=== PATIENT | female | born 1940 | race Caucasian/White ===

== ENCOUNTER 2016-08-14 17:27 | Emergency (ER) | payer MEDICARE, MEDICAID ==
--- NOTE | 2016-08-14 17:57 | ED Physician Chart ---
Chief Complaint/HPI - Patient Information Date Seen:: 08/14/16 Time Seen:: 17:30 Chief Complaint:: right knee pain History of Present Illness:: Onset x one day of Right Knee Pain and Neck Pain after an unwitnessed fall; ? syncopal event; pt denies C/P, dyspnea, Abd. Pain, A/N/V/D/C, fever, chills, H/ As,; Allergies:: Allergies Allergy/AdvReac Type Severity Reaction Status Date / Time No Known Allergies Allergy Verified 08/14/16 17:36 Vitals:: Vital Signs - 8 hr 08/14/16 17:37 Temp 99.2 F HR 71 RR 17 BP 126/72 O2 Sat % 96 Historian:: Patient, Family Member Review:: Nurse's Note Reviewed Review of Systems - Review of Systems General/Constitutional: Fever, Chills, No weight loss, No weakness, No diaphoresis, No edema, No loss of appetite Skin: No skin lesions, No rash, Bruising Head: Headache, Light headed Eyes: No loss of vision, No pain, No diplopia ENT: No earache, No nasal drainage, No sore throat, No tinnitus Neck: Neck pain, No swelling, No thyromegaly, No stiffness, No mass noted Cardio Vascular: No chest pain, Palpitations, No PND, No orthopnea, No edema Pulmonary: No SOB, Cough, No sputum, No wheezing GI: Nausea, Vomiting, Diarrhea, Pain, No melena, No hematochezia, Constipation, No hematemesis G/U: No dysuria, No frequency, No hematuria Musculoskeletal: Bone or joint pain, No back pain, Muscle pain Endocrine: No polyuria, No polydipsia Psychiatric: No prior psych history, No depression, No anxiety, No suicidal ideation Hematopoietic: Bruising, No lymphadenopathy Allergic/Immuno: No urticaria, No angioedema Neurological: Syncope, No focal symptoms, Weakness, No paresthesia, Headache, No seizure, Dizziness, No confusion, No vertigo Past Medical History - Past Medical History Past Medical History: HTN, Asthma/COPD Family History: HTN Social History: Non Smoker, No Alcohol, No Drug Use Surgical History: None Psychiatricy History: None Medication: Reviewed Family Medical History - Family Member Mother History Unknown: Yes Physical Exam - Physical Examination General/Constitutional: Awake, Well-developed, well-nourished, Alert, No distress, GCS 15, Non-toxic appearing, Ambulatory Head: Atraumatic Eyes: Lids, conjuctiva normal, PERRL, EOMI Skin: Nl inspection, No rash, No skin lesions, No ecchymosis, Well hydrated, No lymphadenopathy ENMT: External ears, nose nl, Nasal exam nl, Lips, teeth, gums nl Neck: No JVD, No nuchal rigidity, No bruit, No mass, No stridor Other Neck comments:: Bilateral cervical paravertebral soft tissue tenderness; good motor, tendon, and sensory functions; good NV functions Respiratory: Nl effort/Exclusion, Clear to Auscultation, No Wheeze/Rhonchi/Rales Cardio Vascular: RRR, No murmur, gallop, rubs, NL S1 S2 GI: No tenderness/rebounding/guarding, No organomegaly, No hernia, Normal BS's, Nondistended, No mass/bruits, No McBurney tenderness : No CVA tenderness Extremities: normal strength in all extremities, No edema, Normal digits & nails Other Extremities comments:: Right Knee: + Contusions; Diffuse Tenderness and swelling; good NV functions Neuro/Psych: Alert/oriented, DTR's symmetric, Normal sensory exam, Normal motor strength, Judgement/insight normal, Mood normal, Normal gait, No focal deficits Misc: normal gait, Normal back, No paraspinal tenderness Labs/Radiology/EKG Results - Lab Results Results: pt refused all labs, EKG, and Scans - Radiology Results Results: Right Knee X-Rays: No Fx; pt refused all other X-rays ED Septic Shock - . Is Septic Shock (SBP<90, OR Lactate>4 mmol\L) present?: No - <6hrs of presentation: Vital Signs: Vital Signs - 8 hr 08/14/16 17:37 Temp 99.2 F HR 71 RR 17 BP 126/72 O2 Sat % 96 Reassessment (Disposition) - Reassessment Reassessment:: pt is asymptomatic and comfortable upon discharge Reassessment Condition:: Improved - Diagnosis Diagnosis:: Right Knee Sprains and Contusions; Cervical Strain; ? Syncope; S/P Fall - Aftercare/Follow up Instructions Aftercare/Follow-Up Instructions:: Counseled pt regarding lab results/diagnosis & need follow up, Refer to Discharge Instructions, Counseled pt & family regarding lab results/diagnosis & need follow up - Patient Disposition Discharge/Transfer:: Against Medical Advice Condition at Disposition:: Stable, Improved (RTER prn if existing s/s reoccur and/or get worse and/or any other new s/s occur; refer to [facility]/ Orthopedist/Neurologist MICHELLE; F/U with PMD in one day or prn; X-Rays Instructions; ACIs given for all above Dx; RTER prn if concerned) ED Discharge Plan - Patient Disposition Instructions: Knee Sprain, [id number] Additional Instructions: Pt to follow up with primary doctor for ortho referral Accepting Physician: , Primary [Other] - 1-3 Days
[2016-08-14 18:33] LABS: % BASOPHILS 0.7 % (0.0-2.0); % EOSINOPHILS 1.7 % (0.0-5.0); % LYMPHOCYTES 45.2 % (20.0-50.0); % MONOCYTES 12.2 % (2.0-10.0); % NEUTROPHILS 40.2 % (40.0-80.0); HEMATOCRIT 36.6 % (35.0-45.0); HEMOGLOBIN 12.5 gm/dL (11.7-16.1); MEAN CELL VOLUME 87.7 fl (81-100); MEAN CORPUSCULAR HGB CONC 34.3 pg (28.0-36.0); MEAN PLATELET VOLUME 8.1 fl; NEUTROPHILE ABSOLUTE 3.1 Th/cmm (1.8-8.0); PLATELET COUNT 181 Th/cmm (150-400); RED BLOOD COUNT 4.18 Mil/cmm (3.80-5.20); WHITE BLOOD COUNT 7.8 Th/cmm (4.8-10.8)
[2016-08-14 18:39] LABS: ANION GAP 8.1 (7.0-16.0); BUN - UREA NITROGEN 23 mg/dL (7-25); BUN/CREATININE RATIO 32.9; CALCIUM SERUM 9.5 mg/dL (8.6-10.3); CHLORIDE 105 mEq/L (98-107); CHOLESTEROL 175 mg/dL (<200); CREATININE - SERUM 0.7 mg/dL (0.6-1.2); GLUCOSE 122 mg/dL (70-105); POTASSIUM SERUM 3.1 mEq/L (3.5-5.1); SODIUM SERUM 139 mEq/L (136-145); TRIGLYCERIDES 159 mg/dL (<150)
[2016-08-14 18:43] LABS: TROP I 0.01 ng/mL (0.01-0.05)
[2016-08-14 18:44] LABS: INR 1.09 (0.5-1.4); PROTHROMBIN TIME (TEST) 11.4 SECONDS (9.5-11.5)
[2016-08-14 18:54] LABS: BNP 58.6 pg/mL (5.0-100.0)
--- NOTE | 2016-08-15 09:19 | Diagnostic Imaging Report ---
Right knee 3 views Indication: Trauma Comparison: none Findings: There is generalized soft tissue prominence with soft tissue swelling of the prepatellar and infrapatellar proximal tibial region. Nonspecific 2 mm ossicle is seen along the anterior proximal tibial soft tissues. Moderate degenerative changes of the knee joint are noted with hypertrophic bony spurring. No evidence of an acute fracture or joint effusion. Impression: No evidence of an acute fracture. Generalized soft tissue prominence with more focal soft tissue swelling and edema seen along the prepatellar and proximal tibial soft tissues. Moderate degenerative changes. In the setting of trauma, if clinical symptoms persist and there is continued concern for an occult fracture, follow up exams in 5-7 days is suggested.
== END 2016-08-14 19:00 | disposition home or self-care (01) ==
LOC: ER 17:27
DX: S83.91XA Sprain of unspecified site of right knee, initial encounter (principal); S16.1XXA Strain of muscle, fascia and tendon at neck level, initial encounter; I10 Essential (primary) hypertension; J45.909 Unspecified asthma, uncomplicated; J44.9 Chronic obstructive pulmonary disease, unspecified; W19.XXXA Unspecified fall, initial encounter; Y93.89 Activity, other specified; Y92.89 Other specified places as the place of occurrence of the external cause; Y99.8 Other external cause status
CPT/HCPCS: 36415-UA; 73562-TC-RT; 80048-TC; 80061-TC; 82550-TC; 83880-TC; 84484-TC; 85025-TC; 85610-TC; 94760